=== PATIENT | male | born 1945 | race Caucasian/White ===

== ENCOUNTER 2017-10-17 23:45 | Inpatient (IN) ==
--- NOTE | 2017-10-17 23:58 | Emergency Department Note ---
Disposition Clinical Impression: Upper gastrointestinal hemorrhage, Lower gastrointestinal hemorrhage, History of stroke Disposition: Admitted As Inpatient Condition: Fair Referrals: Juan Jeronimo MD [Primary Care Provider] - Forms: ED Satisfaction Letter Time of Disposition: 04:02 ([facility] OBSV) GI Bleed HPI - General Chief complaint: ED GI Bleed Stated complaint: rectal bleeding Time Seen by Provider: 10/17/17 23:47 Source: patient, family, EMS, other (NH) Mode of arrival: EMS Limitations: physical limitation Nursing Notes Reviewed: Yes Vital Signs Reviewed: Yes - History of Present Illness HPI Narrative: Patient sent to the ER for evaluation because he is passing black stools from the nursing care facilities patient himself I's and has no complaints denies any pain or discomfort he states that the problems been going on for couple weeks report was different from the nursing care facility Pt Subjective Complaint: melena Onset (ago): day(s) Improves with: nothing Worsens with: bowel movement Context: history of GI bleed Associated symptoms: Reports: none Treatments Prior to Arrival: none - Related Data Home Medications Medication Instructions Recorded Confirmed Indapamide [Lozol] 2.5 mg GTUBE DAILY 01/19/15 10/18/17 Metformin HCl [Glucophage] 1,000 mg GTUBE BID 01/19/15 10/18/17 Metoprolol [Lopressor] 75 mg GTUBE BID 01/19/15 10/18/17 Venlafaxine [Effexor] 75 mg GTUBE DAILY 01/19/15 10/18/17 Xanax 1 MG Tablet 1 mg GTUBE QID PRN 01/19/15 10/18/17 Enalapril Maleate 20 mg GTUBE DAILY 03/25/15 10/18/17 Alprazolam [Alprazolam Xr] 1 mg GTUBE Q8H PRN 10/18/17 10/18/17 Doxycycline 100 mg GTUBE BID 10/18/17 10/18/17 Fluticasone Propionate Nasal 50 mcg NS QAM 10/18/17 10/18/17 [Flonase] Gabapentin [Neurontin] 600 mg GTUBE Q8H 10/18/17 10/18/17 Glimepiride [Amaryl] 2 mg GTUBE 0800 10/18/17 10/18/17 Insulin Glargine [Lantus] 50 unit SQ HS 10/18/17 10/18/17 Insulin LISPRO [HumaLOG] 0 units SQ TIDWM 10/18/17 10/18/17 Insulin LISPRO [HumaLOG] 30 units SQ BID 10/18/17 10/18/17 OxyCODONE Immed Rel [Roxicodone 10 10 mg GTUBE Q6H PRN 10/18/17 10/18/17 MG] Sucralfate [Carafate] 1 gm GTUBE QIDAC 10/18/17 10/18/17 Allergies Allergy/AdvReac Type Severity Reaction Status Date / Time No Known Allergies Allergy Verified 10/18/17 00:13 All systems ED: reviewed and negative except as stated. Review of Systems: As Per HPI Constitutional: Denies: fever, chills Eyes: Denies: eye pain, eye discharge ENT ED: Denies: ear pain Cardiovascular: Denies: chest pain Respiratory: Denies: cough, dyspnea Gastrointestinal: Denies: abdominal pain, nausea, vomiting, melena Genitourinary: Denies: urgency, dysuria, frequency Musculoskeletal: Denies: back pain, neck pain Integumentary: Denies: rash, abrasion Neurological: Denies: headache, weakness Psychiatric: Denies: anxiety, depression Endocrine: Denies: fatigue Hematological/Lymphatic: Reports: easy bleeding, easy bruising (On anticoagulants) Allergic/Immunologic: Denies: facial swelling Past Medical History - Past Medical History Attestation: Yes The following information was validated with the patient. Source: patient, old records reviewed, obtained from family, nursing notes reviewed Medical history: Reports: coronary artery disease, CVA, diabetes, hyperlipidemia , hypertension Surgical history: Reports: other Psychiatric history: Reports: no psych history - Social History Smoking Status: Former smoker Smokeless Tobacco Status: Yes (SNUFF) Alcohol use: Reports: none Drug use: Reports: none Physical Exam - General Limitations: physical limitation General appearance: alert, in no apparent distress, obese - Head Head exam: atraumatic, normocephalic, normal inspection - Eye Eye exam: Present: normal appearance, PERRL, EOMI - ENT ENT exam: normal exam, normal oropharynx, mucous membranes moist, TM's normal bilaterally, normal external ear exam - Neck Neck exam: Present: normal inspection, full ROM, trachea midline - Chest Chest inspection: Present: normal inspection, symmetric chest wall rise, other ( Rhonchi noted through the trach transmitted into the airways) - Respiratory Respiratory exam: Present: normal lung sounds bilaterally - Cardiovascular Cardiovascular exam: Present: regular rate, normal rhythm, normal heart sounds - Abdominal Exam Abdominal exam: Present: soft, Non-Tender, normal bowel sounds. Absent: mass, pulsatile mass - Expanded Upper Extremity Exam Shoulder exam: Present: normal inspection, full ROM Arm exam: Present: normal inspection, full ROM Elbow exam: Present: normal inspection, full ROM Forearm/Wrist exam: Present: normal inspection, full ROM Hand exam: Present: normal inspection, full ROM Vascular exam: Normal: capillary refill, radial pulse - Expanded Lower Extremity Exam Hip/Pelvis exam: Present: normal inspection, full ROM, other (Patient does have right-sided marked paralysis as a result of a stroke both upper and lower extremities good range of motion) Upper leg exam: Present: normal inspection, full ROM Knee exam: Present: normal inspection, full ROM Lower leg exam: Present: normal inspection, full ROM Ankle exam: Present: normal inspection, full ROM Foot/toe exam: Present: normal inspection, full ROM Neurovascular/Tendon exam: Present: normal capillary refill, normal fine/light touch. Absent: motor deficit, sensory deficit, tendon deficit Gait: observed and normal - Back Exam Back exam: Present: normal inspection, full ROM. 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 Aguila physically for observation he knows the patient well we noted Dr. Mcmillan did his PEG tube placement and showed the family at that time he had 2 bleeding ulcers that are currently being treated as result this could be the source for this with hemoglobin 8.7 serial H&H monitor the patient if the patient continues to drop he may need transfusion and transfer at that time if necessary no evidence of any bleeding within the patient to region at this time transfer to [facility] Vital Signs O2 Sat by Pulse Oximetry 96 10/17/17 23:47 Temperature 98.0 F 10/17/17 23:55 Pulse Rate 84 10/18/17 03:08 Respiratory Rate 18 10/18/17 03:08 Blood Pressure 134/72 10/18/17 03:08 O2 Sat by Pulse Oximetry 100 10/18/17 03:08 Oxygen Delivery Oxygen Delivery Room Air GI Bleed - Differential Diagnosis Likely: hemorrhoids, Upper gastrointestinal hemorrhage, Lower gastrointestinal hemorrhage, melena, coagulopathy - Medical Records Medical records reviewed: Yes I reviewed the patient's medical records. - Lab Data Lab results reviewed: Yes I reviewed the patient's lab results. Result diagrams: 10/18/17 00:25 10/18/17 00:25 Lab Results 10/18/17 10/18/17 10/18/17 Range/Units 00:25 00:25 00:25 WBC 6.7 (4.3-11.1) K/mcL RBC 3.39 L (4.19-5.50) M/mcL Hgb 8.7 L (12.9-16.9) g/dL Hct 28.6 L (37.5-50.1) % MCV 84.4 (83.0-100.0) fL MCH 25.7 L (28.0-33.3) pg MCHC 30.4 L (31.6-35.5) g/dL RDW 15.7 H (11.5-14.5) % Plt Count 209 (140-400) K/mcL MPV 11.3 (9.4-12.4) fL Immature Gran % 0.6 (0-4) % Seg Neutrophils % 73.7 % Lymphocytes % 12.1 % Monocytes % 11.8 % Eosinophils % 1.5 % Basophils % 0.3 % Neutrophils # 4.9 (1.6-8.9) K/mcL Lymphocytes # 0.8 (0.6-4.6) K/mcL Monocytes # 0.8 (0.0-1.3) K/mcL Eosinophils # 0.1 (0.0-0.6) K/mcL Basophils # 0.0 (0.0-0.2) K/mcL PT 11.5 (9.4-12.1) Seconds INR 1.0 APTT 26.7 (26.0-36.0) Seconds Sodium 133 L (136-145) mEq/L Potassium 5.1 (3.5-5.1) mEq/L Chloride 93 L (98-107) mEq/L Carbon Dioxide 34 H (23-29) mEq/L BUN 49 H (8-23) mg/dL Creatinine 0.74 (0.70-1.30) mg/dL Est GFR ( Amer) > 60 (> 60) Est GFR (Non-Af Amer) > 60 (> 60) BUN/Creatinine Ratio 66 H (6-26) Glucose 184 H (70-105) mg/dL Calculated Osmolality 294 (280-300) Calcium 8.8 (8.6-10.3) mg/dL Total Bilirubin 0.3 (0.3-1.0) mg/dL AST 24 (13-39) Units/L ALT 30 (7-52) Units/L Alkaline Phosphatase 56 (34-104) Units/L Serum Total Protein 5.9 L (6.4-8.9) g/dL Albumin 2.6 L (3.5-5.7) g/dL Globulin 3.3 (2.4-3.5) g/dL Albumin/Globulin Ratio 0.8 L (1.1-2.2) TSH 3.037 (0.340-5.600) mcIU/mL Blood Type Antibody Screen 10/18/17 Range/Units 00:25 WBC (4.3-11.1) K/mcL RBC (4.19-5.50) M/mcL Hgb (12.9-16.9) g/dL Hct (37.5-50.1) % MCV (83.0-100.0) fL MCH (28.0-33.3) pg MCHC (31.6-35.5) g/dL RDW (11.5-14.5) % Plt Count (140-400) K/mcL MPV (9.4-12.4) fL Immature Gran % (0-4) % Seg Neutrophils % % Lymphocytes % % Monocytes % % Eosinophils % % Basophils % % Neutrophils # (1.6-8.9) K/mcL Lymphocytes # (0.6-4.6) K/mcL Monocytes # (0.0-1.3) K/mcL Eosinophils # (0.0-0.6) K/mcL Basophils # (0.0-0.2) K/mcL PT (9.4-12.1) Seconds INR APTT (26.0-36.0) Seconds Sodium (136-145) mEq/L Potassium (3.5-5.1) mEq/L Chloride (98-107) mEq/L Carbon Dioxide (23-29) mEq/L BUN (8-23) mg/dL Creatinine (0.70-1.30) mg/dL Est GFR ( Amer) (> 60) Est GFR (Non-Af Amer) (> 60) BUN/Creatinine Ratio (6-26) Glucose (70-105) mg/dL Calculated Osmolality (280-300) Calcium (8.6-10.3) mg/dL Total Bilirubin (0.3-1.0) mg/dL AST (13-39) Units/L ALT (7-52) Units/L Alkaline Phosphatase (34-104) Units/L Serum Total Protein (6.4-8.9) g/dL Albumin (3.5-5.7) g/dL Globulin (2.4-3.5) g/dL Albumin/Globulin Ratio (1.1-2.2) TSH (0.340-5.600) mcIU/mL Blood Type A POSITIVE Antibody Screen NEGATIVE - Radiology Data Radiology results reviewed: Yes I reviewed the patient's radiology results. ITS Impressions Chest X-Ray 10/18/17 00:05 IMPRESSION: No acute disease. D/ / Armani Garcia MD / Armani Garcia MD Interpreting Provider: Armani Garcia MD Abdomen/Pelvis CT 10/18/17 00:07 IMPRESSION: 1. No acute findings in the abdomen and pelvis. 2. Enlarging right lower lobe pulmonary nodule. Consider PET-CT or biopsy. D/ / Armani Garcia MD / Armani Garcia MD Interpreting Provider: Armani Garcia MD - EKG Data EKG attestation: Yes I reviewed and interpreted this EKG. EKG results narrative: Sinus rhythm right bundle branch block rate 88 AL 186 QRS 146 QT 395 axis XXXIV Critical Care Time Critical Care Time: No
[2017-10-18] MEDS ORDERED: Isovue-370 500 ML INFUS..BTL IV ONE (00:05)
[2017-10-18 00:35] LABS: Basophils % 0.3 %; Eosinophils # 0.1 K/mcL (0.0-0.6); Eosinophils % 1.5 %; Hematocrit 28.6 % (37.5-50.1); Hemoglobin 8.7 g/dL (12.9-16.9); Immature Granulocytes % 0.6 % (0-4); Lymphocytes # 0.8 K/mcL (0.6-4.6); Lymphocytes % 12.1 %; Mean Corpuscular HGB Conc 30.4 g/dL (31.6-35.5); Mean Corpuscular Hemoglobin 25.7 pg (28.0-33.3); Mean Corpuscular Volume 84.4 fL (83.0-100.0); Mean Platelet Volume 11.3 fL (9.4-12.4); Monocytes # 0.8 K/mcL (0.0-1.3); Monocytes % 11.8 %; Neutrophils # 4.9 K/mcL (1.6-8.9); Platelet Count 209 K/mcL (140-400); Red Blood Count 3.39 M/mcL (4.19-5.50); Red Cell Distribution Width 15.7 % (11.5-14.5); Segmented Neutrophils % 73.7 %
[2017-10-18 00:56] LABS: Prothrombin Time 11.5 Seconds (9.4-12.1)
[2017-10-18 00:58] LABS: Activated Partial Thrombo Time 26.7 Seconds (26.0-36.0)
[2017-10-18 01:07] LABS: Alanine Aminotransferase 30 Units/L (7-52); Albumin 2.6 g/dL (3.5-5.7); Albumin/Globulin Ratio 0.8 (1.1-2.2); Alkaline Phosphatase 56 Units/L (34-104); Aspartate Amino Transferase 24 Units/L (13-39); BUN/Creatinine Ratio 66 (6-26); Bilirubin,Total 0.3 mg/dL (0.3-1.0); Blood Urea Nitrogen 49 mg/dL (8-23); Calcium 8.8 mg/dL (8.6-10.3); Carbon Dioxide 34 mEq/L (23-29); Chloride 93 mEq/L (98-107); Globulin 3.3 g/dL (2.4-3.5); Glucose 184 mg/dL (70-105); Osmolality,Calculated 294 (280-300); Potassium 5.1 mEq/L (3.5-5.1); Sodium 133 mEq/L (136-145); Total Protein 5.9 g/dL (6.4-8.9); eGFR For Non-African Americans > 60 (> 60)
[2017-10-18 01:20] LABS: Thyroid Stimulating Hormone 3.037 mcIU/mL (0.340-5.600)
[2017-10-18] MEDS ORDERED: ISOVUE-370 100 ML INFUS..BTL IV ONE (07:50)
[2017-10-18] MEDS ORDERED: D5% in Water 1,000 ML IVC PRN (07:50)
[2017-10-18] MEDS ORDERED: Naloxone 0.4 MG/ML INJ IVP PRN (07:50)
[2017-10-18] MEDS ORDERED: *HR* Dextrose 50 % in Water (Syg) 50 ML SYRINGE IVP PRN (07:50)
[2017-10-18] MEDS ORDERED: Dextrose Gel 15 GM/37.5 ML TUBE PO PRN ×2 (07:50)
[2017-10-18] MEDS ORDERED: ALPRAZOLAM 1 MG GTUBE PRN (07:50)
[2017-10-18 08:49] LABS: Hematocrit 27.9 % (37.5-50.1); Hemoglobin 8.5 g/dL (12.9-16.9)
[2017-10-18] MEDS ORDERED: Lisinopril 20 MG TABLET GTUBE SCH (09:00)
[2017-10-18] MEDS: Insulin LISPRO 300 UNITS/3 ML VIAL SQ SCH ×2 (09:28→22:09)
[2017-10-18] MEDS: Gabapentin 300 MG CAPSULE GTUBE SCH ×2 (09:29→18:08)
[2017-10-18] MEDS: Fluticasone Propionate Nasal 50 MCG/SPRAY BOTTLE NS SCH (09:36)
[2017-10-18] MEDS: Pantoprazole 40 MG VIAL IVP SCH ×2 (09:42→18:09)
[2017-10-18] MEDS: 0.9 % Sodium Chloride 1,000 ML IVC SCH ×2 (09:44→20:06)
--- NOTE | 2017-10-18 12:31 | Internal Med History&Physical ---
Date of Encounter: 10/18/17 Time of Encounter: 12:05 Assessment and Plan (1) Melena Current visit: Yes Status: Acute Duration unknown. Suspect upper GI bleed. Will treat conservatively at this time and give IV PPI and monitor. (2) Azotemia Current visit: Yes Status: Acute Creatinine has decreased from 0.98 on 06/06/2017 to 0.74 on admission. BUN has risen perhaps due to upper GI bleed with possible superimposed dehydration. Will order IV fluids and monitor labs. (3) DM2 (diabetes mellitus, type 2) Current visit: No Status: Chronic Qualifiers: Diabetes mellitus halfway insulin use: with meterman use Diabetes mellitus complication status: with neurologic complications Diabetes mellitus complication detail: with other neurological complication Qualified Code(s): E11.49 - Type 2 diabetes mellitus with other diabetic neurological complication ; Z79.4 - custodial (current) use of insulin (4) HTN (hypertension) Current visit: No Status: Chronic Blood pressure borderline low. Hold antihypertensive medication. Qualifiers: Hypertension type: essential hypertension Qualified Code(s): I10 - Essential (primary) hypertension (5) History of stroke Current visit: Yes Status: Acute Med list does not include antiplatelet agent or anticoagulant. Internal Medicine - H&P: HPI Chief complaint: Melena Admitted From: Emergency Dept Plans for Post Hospital Care: Transfer Half-Way Care History of present illness: Mr. Hackett is a 72 year old male who was sent from a local SNF after staff reported him having black stools (per ER report). The patient indicates it has been occurring for several days. He denies any pain. He was evaluated in emergency room and found to have hemoglobin decreased at 8.7. Most recent previous hemoglobin on record was 12.9 on 06/06/2017. He was admitted to [facility] floor for ongoing care needs. The patient has a tracheostomy and cannot phonate. Review of med list shows no NSAIDs, antiplatelet, or anticoagulation medication use. He has had a G-tube placed since his April [address] [facility] hospitalization. He reports this was done at [facility]. GI history is negative for known disorders of liver gallbladder or exocrine pancreas otherwise. Past Med Surg Social Fam HX - Past Medical History Medical history: coronary artery disease, CVA, diabetes, hyperlipidemia, hypertension Additional medical history: hemiplegia. neoplasm of oropharynx. dysphagia. cognitive communication deficiet. neuropathy. joint pain. erectile dysfunction. dyspnea. sob. muscle weakness. difficulty in walking Psychiatric history: no psych history - Past Surgical History Surgical History: other Additional surgical history: cardiac stents x2, R jugular stent - Social History Smoking Status: Former smoker Smokeless Tobacco Status: Yes (SNUFF) Alcohol use: none Drug use: none - Family History Mother Living Status: Hx Family Cardiac Disorders: No Hx Family Respiratory Disorders: No Hx Family Cancer: No Hx Family GI Disorders: No Hx Family Endocrine Disorder: Yes (DM brothers and mother) Hx Family Neuromuscular Disorders: No Hx Family Neurologic Disorders: No Hx Family HEENT Disorders: No Hx Family Autoimmune Disorders: No Internal Medicine - H&P: Meds Indapamide [Lozol] 2.5 mg GTUBE DAILY 01/19/15 [History] Metformin HCl [Glucophage] 1,000 mg GTUBE BID 01/19/15 [History] Metoprolol [Lopressor] 75 mg GTUBE BID 01/19/15 [History] Venlafaxine [Effexor] 75 mg GTUBE DAILY 01/19/15 [History] Xanax 1 MG Tablet 1 mg GTUBE QID PRN 01/19/15 [History] Enalapril Maleate 20 mg GTUBE DAILY 03/25/15 [History] Alprazolam [Alprazolam Xr] 1 mg GTUBE Q8H PRN 10/18/17 [History] Doxycycline 100 mg GTUBE BID 10/18/17 [History] Fluticasone Propionate Nasal [Flonase] 50 mcg NS QAM 10/18/17 [History] Gabapentin [Neurontin] 600 mg GTUBE Q8H 10/18/17 [History] Glimepiride [Amaryl] 2 mg GTUBE 0800 10/18/17 [History] Insulin Glargine [Lantus] 50 unit SQ HS 10/18/17 [History] Insulin LISPRO [HumaLOG] 0 units SQ TIDWM 10/18/17 [History] Insulin LISPRO [HumaLOG] 30 units SQ BID 10/18/17 [History] OxyCODONE Immed Rel [Roxicodone 10 MG] 10 mg GTUBE Q6H PRN 10/18/17 [History] Sucralfate [Carafate] 1 gm GTUBE QIDAC 10/18/17 [History] 3 Allergy/AdvReac Type Severity Reaction Status Date / Time No Known Allergies Allergy Verified 10/18/17 00:13 All Systems PM: A 10-system review of systems was performed and is negative for pertinent findings except as documented above in the HPI. Review of systems: Review of systems from his April [address] [facility] hospitalization were reviewed and revised as below. Gen.: His weight increased from 108.454 kg on 03/10/2015 to 119.918 kg at the April 2017 hospitalization but has decreased to 107.048 kg on admission now Cardiovascular: He has a history of hypertension but denies RI heart failure angina DVT or pulmonary embolus Respiratory: He smoked from age [age] never exceeding one half pack per day. He denies chronic lung disease. A tracheostomy has been placed since the April [address] [facility] hospitalization. GI: As per history of present illness : He denies hematuria dysuria or kidney stones Neurologic: He had a stroke February 2013 with resultant right hemiplegia. He denies seizures. Endocrine: He was diagnosed with DM 2 in 1994. He has hyperlipidemia but denies thyroid disease. He has diabetic peripheral neuropathy. Hematology/oncology: He denies blood disorders cancers or anemia Psychiatric: He takes Effexor and has history of depression but states he does not feel depressed now. He denies anxiety or other mental health issues but [facility]. [place] skeletal: he denies arthritis gout or osteoporosis - Constitutional Vitals: Temp Pulse Resp BP Pulse Ox 98.6 F 86 18 106/50 99 10/18/17 11:09 10/18/17 11:09 10/18/17 11:09 10/18/17 11:09 10/18/17 11:09 Exam: Gen.: He is well-developed overweight male lying in bed who appears in no acute distress HEENT: Head is atraumatic and normal cephalic. Eyes: EOMI. There is no scleral icterus. Mouth: Mucosa is moist Neck: There is no thyromegaly or adenopathy noted. Tracheostomy is in place with oxygen by trach mask present. Heart: Regular without murmurs gallops or ectopics Lungs: No wheezes or crackles are heard. Abdomen: A PEG tube is in place in the epigastric area. No masses or guarding are noted. Extremities: He has chronic venous stasis pigmentation changes bilaterally of the lower legs and feet. He has acute venous stasis with erythema and increased warmth of the right lower leg. Dorsalis pedis and posterior tibial pulses are trace palpable bilaterally. He has chronic shallow ulcer on the dorsum of the distal phalanx of the right second toe and on the medial side distal phalanx of left great toe. Neurologic: Mental status: He is awake and tries to speak but cannot phonate. It is difficult for me to understand his attempted speech. Cranial nerves: Smile is symmetric. Forehead wrinkles bilaterally. Tongue protrudes midline. EOMI. Motor: He moves his left arm well but cannot pronate easily. The right arm shows weakness but he is able to lift off the bed. Cerebellar: Finger to nose is intact bilaterally. Skin: Warm and dry with venous stasis changes of legs as described above. Internal Med - H&P Results - Labs CBC & Chem 7: 10/18/17 08:42 10/18/17 00:25 Labs: Short CBC 10/18/17 Range/Units 08:42 Hgb 8.5 L (12.9-16.9) g/dL Hct 27.9 L (37.5-50.1) %
[2017-10-18 14:07] LABS: Hematocrit 26.8 % (37.5-50.1); Hemoglobin 8.2 g/dL (12.9-16.9)
--- NOTE | 2017-10-18 17:34 | Electrocardiograph Report ---
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
[2017-10-18 18:37] LABS: Basophils % 0.5 %; Eosinophils # 0.1 K/mcL (0.0-0.6); Eosinophils % 2.1 %; Hematocrit 25.4 % (37.5-50.1); Hemoglobin 7.8 g/dL (12.9-16.9); Immature Granulocytes % 0.5 % (0-4); Lymphocytes # 0.7 K/mcL (0.6-4.6); Lymphocytes % 16.9 %; Mean Corpuscular HGB Conc 30.7 g/dL (31.6-35.5); Mean Corpuscular Hemoglobin 26.1 pg (28.0-33.3); Mean Corpuscular Volume 84.9 fL (83.0-100.0); Mean Platelet Volume 11.8 fL (9.4-12.4); Monocytes # 0.6 K/mcL (0.0-1.3); Monocytes % 13.7 %; Neutrophils # 2.9 K/mcL (1.6-8.9); Platelet Count 194 K/mcL (140-400); Red Blood Count 2.99 M/mcL (4.19-5.50); Red Cell Distribution Width 15.9 % (11.5-14.5); Segmented Neutrophils % 66.3 %
[2017-10-18] MEDS ORDERED: Insulin DETEMIR 100 UNIT/ML X5UNITS SQ SCH (21:00)
[2017-10-19] MEDS: Gabapentin 300 MG CAPSULE GTUBE SCH ×3 (00:08→16:50)
[2017-10-19 05:24] LABS: Basophils % 0.5 %; Eosinophils # 0.1 K/mcL (0.0-0.6); Hematocrit 24.1 % (37.5-50.1); Hemoglobin 7.3 g/dL (12.9-16.9); Immature Granulocytes % 0.2 % (0-4); Lymphocytes # 0.6 K/mcL (0.6-4.6); Lymphocytes % 14.8 %; Mean Corpuscular HGB Conc 30.3 g/dL (31.6-35.5); Mean Corpuscular Hemoglobin 25.7 pg (28.0-33.3); Mean Corpuscular Volume 84.9 fL (83.0-100.0); Mean Platelet Volume 11.8 fL (9.4-12.4); Monocytes # 0.5 K/mcL (0.0-1.3); Monocytes % 11.8 %; Neutrophils # 2.9 K/mcL (1.6-8.9); Platelet Count 195 K/mcL (140-400); Red Blood Count 2.84 M/mcL (4.19-5.50); Red Cell Distribution Width 15.9 % (11.5-14.5); Segmented Neutrophils % 70.7 %
[2017-10-19 05:46] LABS: Chol/HDL Ratio 4.4 (0-4.9)
[2017-10-19] MEDS: Pantoprazole 40 MG VIAL IVP SCH ×2 (06:25→16:50)
[2017-10-19] MEDS: 0.9 % Sodium Chloride 1,000 ML IVC SCH ×2 (06:25→16:50)
[2017-10-19] MEDS ORDERED: 0.9 % Sodium Chloride 250 ML ONE (09:03)
[2017-10-19 09:50] LABS: Folate 18.1 ng/mL (3.0-16.0)
[2017-10-19 09:58] LABS: % Iron Saturation 15 % (20-55); Ferritin 208 ng/mL (20-250); Iron 35 mcg/dL (65-175); Transferrin 172 mg/dL (203-362)
[2017-10-19] MEDS: Insulin LISPRO 300 UNITS/3 ML VIAL SQ SCH (10:27)
[2017-10-19 10:57] LABS: BUN/Creatinine Ratio 44 (6-26); Blood Urea Nitrogen 32 mg/dL (8-23); Calcium 8.2 mg/dL (8.6-10.3); Carbon Dioxide 34 mEq/L (23-29); Chloride 101 mEq/L (98-107); Glucose 45 mg/dL (70-105); Osmolality,Calculated 292 (280-300); Potassium 3.6 mEq/L (3.5-5.1); Sodium 139 mEq/L (136-145); eGFR For Non-African Americans > 60 (> 60)
[2017-10-19] MEDS: Fluticasone Propionate Nasal 50 MCG/SPRAY BOTTLE NS SCH (12:32)
[2017-10-19] MEDS: ALPRAZolam 1 MG TABLET GTUBE PRN (13:07)
--- NOTE | 2017-10-19 17:12 | Internal Med Progress Note ---
Date of Encounter: 10/19/17 Time of Encounter: 16:00 - Assessment and plan (1) Melena Current Visit: Yes Status: Acute Assessment and plan: October 19. Suspect upper GI bleed possibly from reported previously seen gastric ulcers. Continue IV PPI, Carafate, and monitoring. (2) Azotemia Current Visit: Yes Status: Acute Assessment and plan: October 19. BUN has decreased to 32 today. Will start tube feedings. (3) DM2 (diabetes mellitus, type 2) Current Visit: No Status: Chronic Assessment and plan: October 19. Will start tube feeding. Continue metformin and Accu-Cheks with SSI. Hold Amaryl. Qualifiers: Diabetes mellitus halfway insulin use: with halfway use Diabetes mellitus complication status: with neurologic complications Diabetes mellitus complication detail: with other neurological complication Qualified Code(s): E11.49 - Type 2 diabetes mellitus with other diabetic neurological complication ; Z79.4 - senior care (current) use of insulin (4) HTN (hypertension) Current Visit: No Status: Chronic Assessment and plan: October 19. Continue to hold enalapril and indapamide. Qualifiers: Hypertension type: essential hypertension Qualified Code(s): I10 - Essential (primary) hypertension (5) History of stroke Current Visit: Yes Status: Acute Assessment and plan: October 19. Continue to withhold antiplatelet and anticoagulant medications because of GI bleed. - Subjective Interval history: October 19. He has no new complaints.. Staff reports he had a single melanotic stool last evening. I spoke with his daughter who reported he had gastric ulcers documented during his [facility] stay September 24 when the most recent PEG tube was placed. - Constitutional Vitals: Temp Pulse Resp BP Pulse Ox 99.0 F 95 20 122/68 96 10/19/17 12:07 10/19/17 12:07 10/19/17 12:07 10/19/17 12:07 10/19/17 12:07 Exam: He is resting comfortably in bed and appears in no acute distress. His heart is regular. Lungs show no wheezes or crackles. Extremities show trace edema bilaterally. I reviewed his medications and lab results. Internal Medicine: Result - Labs CBC & Chem 7: 10/19/17 05:12 10/19/17 05:12 Labs: Short CBC 08/10/18 08/11/18 Range/Units 18:31 05:12 WBC 4.3 4.1 L (4.3-11.1) K/mcL Hgb 7.8 L 7.3 L (12.9-16.9) g/dL Hct 25.4 L 24.1 L (37.5-50.1) % Plt Count 194 195 (140-400) K/mcL Neutrophils # 2.9 2.9 (1.6-8.9) K/mcL BMP 10/19/17 05:12 Sodium 139 Potassium 3.6 Chloride 101 Carbon Dioxide 34 H BUN 32 H Creatinine 0.73 Glucose 45 L Calcium 8.2 L - ABG Interpretation ABG results: PT/INR, D-dimer PT 11.5 Seconds (9.4-12.1) 10/18/17 00:25 Consult Discharge Plan - Plan Referrals: Juan Jeronimo MD [Primary Care Provider] - 1 week
[2017-10-20] MEDS: ALPRAZolam 1 MG TABLET GTUBE PRN ×4 (03:35→21:06)
[2017-10-20] MEDS: Gabapentin 300 MG CAPSULE GTUBE SCH ×3 (03:35→16:50)
[2017-10-20 05:58] LABS: Basophils % 0.2 %; Eosinophils # 0.1 K/mcL (0.0-0.6); Eosinophils % 2.1 %; Hematocrit 25.8 % (37.5-50.1); Hemoglobin 7.9 g/dL (12.9-16.9); Immature Granulocytes % 0.2 % (0-4); Lymphocytes # 0.5 K/mcL (0.6-4.6); Lymphocytes % 11.4 %; Mean Corpuscular HGB Conc 30.6 g/dL (31.6-35.5); Mean Corpuscular Hemoglobin 26.2 pg (28.0-33.3); Mean Corpuscular Volume 85.7 fL (83.0-100.0); Mean Platelet Volume 11.5 fL (9.4-12.4); Monocytes # 0.6 K/mcL (0.0-1.3); Monocytes % 12.6 %; Neutrophils # 3.2 K/mcL (1.6-8.9); Platelet Count 173 K/mcL (140-400); Red Blood Count 3.01 M/mcL (4.19-5.50); Red Cell Distribution Width 16.2 % (11.5-14.5); Segmented Neutrophils % 73.5 %
[2017-10-20] MEDS: Pantoprazole 40 MG VIAL IVP SCH ×2 (06:22→16:50)
[2017-10-20 06:32] LABS: BUN/Creatinine Ratio 23 (6-26); Blood Urea Nitrogen 15 mg/dL (8-23); Calcium 8.1 mg/dL (8.6-10.3); Carbon Dioxide 31 mEq/L (23-29); Chloride 98 mEq/L (98-107); Glucose 138 mg/dL (70-105); Osmolality,Calculated 283 (280-300); Potassium 3.7 mEq/L (3.5-5.1); Sodium 135 mEq/L (136-145); eGFR For Non-African Americans > 60 (> 60)
[2017-10-20] MEDS: 0.9 % Sodium Chloride 1,000 ML IVC SCH ×2 (07:01→08:24)
[2017-10-20] MEDS ORDERED: *HR* Glimepiride 2 MG TABLET GTUBE SCH (08:00)
[2017-10-20] MEDS: *HR* Metformin 500 MG TABLET GTUBE SCH ×2 (08:23→16:50)
[2017-10-20] MEDS: Fluticasone Propionate Nasal 50 MCG/SPRAY BOTTLE NS SCH (08:23)
--- NOTE | 2017-10-20 09:31 | Internal Med Progress Note ---
Date of Encounter: 10/20/17 Time of Encounter: 09:20 - Assessment and plan (1) Melena Current Visit: Yes Status: Acute Assessment and plan: October 19. Suspect upper GI bleed possibly from reported previously seen gastric ulcers. Continue IV PPI, Carafate, and monitoring. October 20. Continue present regimen. Will start Jevity tube feedings. (2) Azotemia Current Visit: Yes Status: Acute Assessment and plan: October 19. BUN has decreased to 32 today. Will start tube feedings. October 20. Resolved. Start tube feedings (3) DM2 (diabetes mellitus, type 2) Current Visit: No Status: Chronic Assessment and plan: October 19. Will start tube feeding. Continue metformin and Accu-Cheks with SSI. Hold Amaryl. 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 Continue to hold enalapril and indapamide. Qualifiers: Hypertension type: essential hypertension Qualified Code(s): I10 - Essential (primary) hypertension (5) History of stroke Current Visit: Yes Status: Acute Assessment and plan: October 19. Continue to withhold antiplatelet and anticoagulant medications because of GI bleed. - Subjective Interval history: October 19. He has no new complaints.. Staff reports he had a single melanotic stool last evening. I spoke with his daughter who reported he had gastric ulcers documented during his [facility] stay September 24 when the most recent PEG tube was placed. October 20. No new problems been reported. G-tube feedings were ordered yesterday but I was just informed Glucerna not available so no feedings have been given. - Constitutional Vitals: Temp Pulse Resp BP Pulse Ox 99 F 103 18 95/61 97 10/20/17 07:00 10/20/17 07:00 10/20/17 07:00 10/20/17 07:00 10/20/17 08:57 Exam: He is resting comfortably in bed and appears in no acute distress. He denies abdominal discomfort. Abdomen is soft and nontender. Bowel sounds are present. Extremities show 0 to trace pitting edema bilaterally. I reviewed his medications and lab results. Internal Medicine: Result - Labs CBC & Chem 7: 10/20/17 05:20 10/20/17 05:20 Labs: Short CBC 10/20/17 Range/Units 05:20 WBC 4.4 (4.3-11.1) K/mcL Hgb 7.9 L (12.9-16.9) g/dL Hct 25.8 L (37.5-50.1) % Plt Count 173 (140-400) K/mcL Neutrophils # 3.2 (1.6-8.9) K/mcL BMP 10/19/17 10/20/17 05:12 05:20 Sodium 139 135 L Potassium 3.6 3.7 Chloride 101 98 Carbon Dioxide 34 H 31 H BUN 32 H 15 Creatinine 0.73 0.65 L Glucose 45 L 138 H Calcium 8.2 L 8.1 L - ABG Interpretation ABG results: PT/INR, D-dimer PT 11.5 Seconds (9.4-12.1) 10/18/17 00:25 Consult Discharge Plan - Plan Referrals: Juan Jeronimo MD [Primary Care Provider] - 1 week
[2017-10-20 09:57] LABS: Estimated Average Glucose 180 mg/dl; Hemoglobin A1C 7.9 %
[2017-10-20 12:39] LABS: Basophils % 0.5 %; Eosinophils # 0.1 K/mcL (0.0-0.6); Eosinophils % 1.6 %; Hematocrit 32.1 % (37.5-50.1); Hemoglobin 9.7 g/dL (12.9-16.9); Immature Granulocytes % 0.5 % (0-4); Lymphocytes # 0.6 K/mcL (0.6-4.6); Lymphocytes % 10.6 %; Mean Corpuscular HGB Conc 30.2 g/dL (31.6-35.5); Mean Corpuscular Hemoglobin 26.9 pg (28.0-33.3); Mean Corpuscular Volume 89.2 fL (83.0-100.0); Mean Platelet Volume 11.6 fL (9.4-12.4); Monocytes # 0.6 K/mcL (0.0-1.3); Monocytes % 9.7 %; Neutrophils # 4.4 K/mcL (1.6-8.9); Platelet Count 160 K/mcL (140-400); Red Cell Distribution Width 16.3 % (11.5-14.5); Segmented Neutrophils % 77.1 %
[2017-10-20 13:43] LABS: Platelet Estimate Normal (Normal)
[2017-10-20] MEDS: *HR* OxyCODONE Oral Soln 5 MG/5 ML UD.LIQ GTUBE PRN (21:24)
[2017-10-21] MEDS: Gabapentin 300 MG CAPSULE GTUBE SCH ×3 (04:41→17:11)
[2017-10-21] MEDS: 0.9 % Sodium Chloride 1,000 ML IVC SCH ×2 (04:41→17:18)
[2017-10-21] MEDS: Pantoprazole 40 MG VIAL IVP SCH ×2 (06:10→17:10)
[2017-10-21 07:19] LABS: Basophils % 0.6 %; Eosinophils # 0.1 K/mcL (0.0-0.6); Eosinophils % 3.7 %; Hematocrit 28.1 % (37.5-50.1); Hemoglobin 8.8 g/dL (12.9-16.9); Immature Granulocytes % 0.6 % (0-4); Lymphocytes # 0.6 K/mcL (0.6-4.6); Lymphocytes % 16.3 %; Mean Corpuscular HGB Conc 31.3 g/dL (31.6-35.5); Mean Corpuscular Volume 86.2 fL (83.0-100.0); Mean Platelet Volume 10.9 fL (9.4-12.4); Monocytes # 0.5 K/mcL (0.0-1.3); Monocytes % 14.3 %; Neutrophils # 2.3 K/mcL (1.6-8.9); Platelet Count 173 K/mcL (140-400); Red Blood Count 3.26 M/mcL (4.19-5.50); Red Cell Distribution Width 16.5 % (11.5-14.5); Segmented Neutrophils % 64.5 %
[2017-10-21] MEDS: *HR* Metformin 500 MG TABLET GTUBE SCH ×2 (07:31→17:12)
[2017-10-21] MEDS: ALPRAZolam 1 MG TABLET GTUBE PRN ×3 (07:31→21:14)
[2017-10-21] MEDS: Fluticasone Propionate Nasal 50 MCG/SPRAY BOTTLE NS SCH (07:32)
--- NOTE | 2017-10-21 09:50 | Internal Med Progress Note ---
Date of Encounter: 10/21/17 Time of Encounter: 09:40 - Assessment and plan (1) Melena Current Visit: Yes Status: Acute Assessment and plan: October 19. Suspect upper GI bleed possibly from reported previously seen gastric ulcers. Continue IV PPI, Carafate, and monitoring. October 20. Continue present regimen. Will start Jevity tube feedings. October 21. Hemoglobin decreased today at 8.8. Continue present management and recheck labs in a.m. Fecal H. pylori antigen pending. (2) Azotemia Current Visit: Yes Status: Acute Assessment and plan: October 19. BUN has decreased to 32 today. Will start tube feedings. October 20. Resolved. Start tube feedings October 21. Recheck labs in a.m. (3) DM2 (diabetes mellitus, type 2) Current Visit: No Status: Chronic Assessment and plan: October 19. Will start tube feeding. Continue metformin and Accu-Cheks with SSI. Hold Amaryl. October 21. Tube feeding has been changed to Glucerna. Continue metformin. Restart Lantus/Levemir at lower dose. Qualifiers: Diabetes mellitus chcf insulin use: with chcf use Diabetes mellitus complication status: with neurologic complications Diabetes mellitus complication detail: with other neurological complication Qualified Code(s): E11.49 - Type 2 diabetes mellitus with other diabetic neurological complication ; Z79.4 - [facility] (current) use of insulin (4) HTN (hypertension) Current Visit: No Status: Chronic Assessment and plan: October 19. Continue to hold enalapril and indapamide. Qualifiers: Hypertension type: essential hypertension Qualified Code(s): I10 - Essential (primary) hypertension (5) History of stroke Current Visit: Yes Status: Acute Assessment and plan: October 19. Continue to withhold antiplatelet and anticoagulant medications because of GI bleed. - Subjective Interval history: October 19. He has no new complaints.. Staff reports he had a single melanotic stool last evening. I spoke with his daughter who reported he had gastric ulcers documented during his [facility] stay September 24- when the most recent PEG tube was placed. October 20. No new problems been reported. G-tube feedings were ordered yesterday but I was just informed Glucerna not available so no feedings have been given. October 21. He had additional melanotic stools yesterday but hemoglobin showed stability. He has no new complaints today. He denies abdominal discomfort. - Constitutional Vitals: Temp Pulse Resp BP Pulse Ox 98.7 F 95 16 112/53 98 10/21/17 07:30 10/21/17 07:30 10/21/17 07:30 10/21/17 07:30 10/21/17 08:56 Exam: He is resting comfortably in bed and appears in no acute distress. His abdomen is soft and nontender. Bowel sounds are diminished. Extremities show no edema. I reviewed his medications and lab results. Internal Medicine: Result - Labs CBC & Chem 7: 10/21/17 07:01 10/20/17 05:20 Labs: Short CBC 10/20/17 10/21/17 Range/Units 12:25 07:01 WBC 5.8 3.5 L (4.3-11.1) K/mcL Hgb 9.7 L D 8.8 L (12.9-16.9) g/dL Hct 32.1 L 28.1 L (37.5-50.1) % Plt Count 160 173 (140-400) K/mcL Neutrophils # 4.4 2.3 (1.6-8.9) K/mcL - ABG Interpretation ABG results: PT/INR, D-dimer PT 11.5 Seconds (9.4-12.1) 10/18/17 00:25 Consult Discharge Plan - Plan Referrals: Juan Jeronimo MD [Primary Care Provider] - 1 week
[2017-10-21] MEDS ORDERED: Insulin DETEMIR 100 UNIT/ML X5UNITS SQ ONE (11:40)
[2017-10-21] MEDS: *HR* OxyCODONE Oral Soln 5 MG/5 ML UD.LIQ GTUBE PRN ×2 (13:54→21:15)
[2017-10-21] MEDS: Insulin DETEMIR 100 UNIT/ML X5UNITS SQ SCH (21:14)
[2017-10-22] MEDS: Gabapentin 300 MG CAPSULE GTUBE SCH ×2 (04:46→08:14)
[2017-10-22] MEDS: Pantoprazole 40 MG VIAL IVP SCH (06:30)
[2017-10-22 07:07] LABS: Basophils % 0.3 %; Eosinophils # 0.2 K/mcL (0.0-0.6); Hematocrit 26.9 % (37.5-50.1); Hemoglobin 8.2 g/dL (12.9-16.9); Immature Granulocytes % 0.7 % (0-4); Lymphocytes # 0.5 K/mcL (0.6-4.6); Lymphocytes % 16.1 %; Mean Corpuscular HGB Conc 30.5 g/dL (31.6-35.5); Mean Corpuscular Hemoglobin 26.3 pg (28.0-33.3); Mean Corpuscular Volume 86.2 fL (83.0-100.0); Mean Platelet Volume 11.1 fL (9.4-12.4); Monocytes # 0.5 K/mcL (0.0-1.3); Monocytes % 16.1 %; Neutrophils # 1.8 K/mcL (1.6-8.9); Platelet Count 175 K/mcL (140-400); Red Blood Count 3.12 M/mcL (4.19-5.50); Red Cell Distribution Width 16.7 % (11.5-14.5); Segmented Neutrophils % 60.8 %
[2017-10-22 07:20] LABS: BUN/Creatinine Ratio 15 (6-26); Blood Urea Nitrogen 9 mg/dL (8-23); Calcium 7.7 mg/dL (8.6-10.3); Carbon Dioxide 34 mEq/L (23-29); Chloride 97 mEq/L (98-107); Glucose 194 mg/dL (70-105); Osmolality,Calculated 282 (280-300); Potassium 3.6 mEq/L (3.5-5.1); Sodium 134 mEq/L (136-145); eGFR For Non-African Americans > 60 (> 60)
[2017-10-22] MEDS: *HR* Metformin 500 MG TABLET GTUBE SCH (08:13)
[2017-10-22] MEDS: Insulin DETEMIR 100 UNIT/ML X5UNITS SQ SCH (09:14)
--- NOTE | 2017-10-22 10:13 | Discharge Summary ---
Orders not resulted at time of discharge: Pending orders 10/20/17 19:40 H. 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 Hackett is a 72 year old male who was sent from a local SNF after staff reported him having black stools (per ER report). The patient indicates it has been occurring for several days. He denies any pain. He was evaluated in emergency room and found to have hemoglobin decreased at 8.7. Most recent previous hemoglobin on record was 12.9 on 06/06/2017. He was admitted to [facility] floor for ongoing care needs. Initial orders were written by the emergency room physician. I saw him on October 18 and performed the history and physical. He was started on IV fluids and IV PPI. He had decreasing quantity of melanotic stools during hospital stay. He received 1 unit packed red blood cell transfusion. Hemoglobin was acceptable at 8.2 on day of discharge. He had no melanotic stools reported the last 24 hours of hospitalization. He will continue with Carafate and omeprazole at the SNF. Follow-up labs can be monitored by his PCP. His blood pressure was borderline low on admission. This gradually returned to satisfactory level and metoprolol will be continued as previously ordered. - Time Spent with Patient Total time spent providing and/or coordinating discharge services: - Discharge Medications Prescriptions: Omeprazole [PriLOSEC] 40 mg PO BID 7 Days cap Home Medications: Metformin HCl [Glucophage] 1,000 mg GTUBE BID 01/19/15 [History] Metoprolol [Lopressor] 75 mg GTUBE BID 01/19/15 [History] Venlafaxine [Effexor] 75 mg GTUBE DAILY 01/19/15 [History] Xanax 1 MG Tablet 1 mg GTUBE QID PRN 01/19/15 [History] Alprazolam [Alprazolam Xr] 1 mg GTUBE Q8H PRN 10/18/17 [History] Fluticasone Propionate Nasal [Flonase] 50 mcg NS QAM 10/18/17 [History] Gabapentin [Neurontin] 600 mg GTUBE Q8H 10/18/17 [History] Glimepiride [Amaryl] 2 mg GTUBE 0800 10/18/17 [History] Insulin Glargine [Lantus] 50 unit SQ HS 10/18/17 [History] Insulin LISPRO [HumaLOG] 0 units SQ TIDWM 10/18/17 [History] Insulin LISPRO [HumaLOG] 30 units SQ BID 10/18/17 [History] OxyCODONE Immed Rel [Roxicodone 10 MG] 10 mg GTUBE Q6H PRN 10/18/17 [History] Sucralfate [Carafate] 1 gm GTUBE QIDAC 10/18/17 [History] Omeprazole [PriLOSEC] 40 mg PO BID 7 Days cap 10/22/17 [Rx] Allergies/Adverse Reactions: 3 Allergy/AdvReac Type Severity Reaction Status Date / Time No Known Allergies Allergy Verified 10/18/17 00:13 Date of admission: 10/18/17 14:04 Primary care physician: Juan Jeronimo MD - Constitutional Vitals: Temp Pulse Resp BP Pulse Ox 98.4 F 89 17 134/57 100 10/22/17 07:26 10/22/17 07:26 10/22/17 07:26 10/22/17 07:26 10/22/17 07:26 Exam: Unremarkable - Patient Status Disposition: Transfer SNF Condition: Fair - Discharge Instructions Follow Up With: Juan Jeronimo MD [Primary Care Provider] - 1 week - Diet and Activity Activity: resume usual activities as tolerated Diet: advance to your usual diet
--- NOTE | 2017-10-22 10:19 | Physician Discharge Referral ---
ExtendedCare Referral Info Transfer To: [facility] Provider in Charge: Aguila Provider in Charge after Transfer: PCP Wanda) - Diagnosis (1) Upper gastrointestinal hemorrhage Priority: Primary Status: Acute (2) Azotemia Priority: Secondary Status: Resolved (3) DM2 (diabetes mellitus, type 2) Priority: Secondary Status: Chronic (4) HTN (hypertension) Priority: Secondary Status: Chronic (5) History of stroke Priority: Secondary Status: Chronic Prognosis: Fair Aware of Diagnosis: Patient Aware of Prognosis: Patient - Transfer Medications Prescriptions: Omeprazole [PriLOSEC] 40 mg PO BID 7 Days cap Home Medications: Metformin HCl [Glucophage] 1,000 mg GTUBE BID 01/19/15 [History] Metoprolol [Lopressor] 75 mg GTUBE BID 01/19/15 [History] Venlafaxine [Effexor] 75 mg GTUBE DAILY 01/19/15 [History] Xanax 1 MG Tablet 1 mg GTUBE QID PRN 01/19/15 [History] Alprazolam [Alprazolam Xr] 1 mg GTUBE Q8H PRN 10/18/17 [History] Fluticasone Propionate Nasal [Flonase] 50 mcg NS QAM 10/18/17 [History] Gabapentin [Neurontin] 600 mg GTUBE Q8H 10/18/17 [History] Glimepiride [Amaryl] 2 mg GTUBE 0800 10/18/17 [History] Insulin Glargine [Lantus] 50 unit SQ HS 10/18/17 [History] Insulin LISPRO [HumaLOG] 0 units SQ TIDWM 10/18/17 [History] Insulin LISPRO [HumaLOG] 30 units SQ BID 10/18/17 [History] OxyCODONE Immed Rel [Roxicodone 10 MG] 10 mg GTUBE Q6H PRN 10/18/17 [History] Sucralfate [Carafate] 1 gm GTUBE QIDAC 10/18/17 [History] Omeprazole [PriLOSEC] 40 mg PO BID 7 Days cap 10/22/17 [Rx] Allergies/Adverse Reactions: 3 Allergy/AdvReac Type Severity Reaction Status Date / Time No Known Allergies Allergy Verified 10/18/17 00:13 - Respiratory Orders Oxygen / L per min (Oxygen per trach mask as previously ordered.) Smoking Cessation: Smoking cessation has been advised. For more information, call the [place] Tobacco Quit Line at 8-574-PCWF-NOW. - Lab Orders Lab Orders: Other (include drug levels w/frequency) (CBC with differential, BMP in 3 days) - Rehabiliation Orders Rehab Potential: Fair Rehab Orders: Evaluation for Physical Therapy, Evaluation for Occupational Therapy CERTIFICATION: I certify that the transfer of the above named patient to an Extended Care Facility is necessary for the continuing treatment of the diagnosis listed. The above information is true and accurate reflection of patient's current condition. Confidential - Redisclosure prohibited without a patient's written consent.
[2017-10-22] MEDS: ALPRAZolam 1 MG TABLET GTUBE PRN (11:04)
[2017-10-22] MEDS: *HR* OxyCODONE Oral Soln 5 MG/5 ML UD.LIQ GTUBE PRN (11:04)
[2017-10-22] MEDS: Fluticasone Propionate Nasal 50 MCG/SPRAY BOTTLE NS SCH (11:11)
[2017-10-22 11:26] VITALS: BP 130/75
== END 2017-10-22 12:30 | DRG 378 ==
LOC: INPPIK 23:45 → EMEROOPIK 23:45 → INPPIK 10-18 03:55
PROVIDERS: ADMIT Internal Medicine; ATTEND Internal Medicine